=== PATIENT | male | born 1980 | race American Indian/Alaskan Native ===

== ENCOUNTER 2016-04-01 22:51 | Emergency (ER) | payer OTHER ==
[2016-04-01 23:45] VITALS: BP 137/72
[2016-04-02] MEDS ORDERED: TORADOL IM ONE (03:40)
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
[2016-04-02] MEDS ORDERED: MOTRIN PO ONE (04:27)
== END 2016-04-02 03:50 | disposition home or self-care (01) ==
LOC: ED 22:51
DX: M54.5 Low back pain (principal); M54.2 Cervicalgia; R51 Headache; V89.2XXA Person injured in unspecified motor-vehicle accident, traffic, initial encounter; Y93.9 Activity, unspecified; Y99.9 Unspecified external cause status; Y92.410 Unspecified street and highway as the place of occurrence of the external cause
CPT/HCPCS: 99282

== ENCOUNTER 2017-11-24 10:48 | Emergency (ER) | payer OTHER ==
[2017-11-24 11:11] VITALS: BP 148/85
[2017-11-24] MEDS ORDERED: MOTRIN PO ONE (12:30)
--- NOTE | 2017-11-24 12:56 | XRay Report ---
LEFT TIBIA/FIBULA: History: Injury. AP and lateral views of the left tibia/fibula demonstrate normal mineralization and contours for this patient's age. No destructive changes are noted and the adjacent soft tissues are normal. IMPRESSION: Normal left tibia/fibula.
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
== END 2017-11-24 13:25 | disposition home or self-care (01) ==
LOC: ED 10:48
DX: M79.605 Pain in left leg (principal); M79.1 Myalgia; V49.49XA Driver injured in collision with other motor vehicles in traffic accident, initial encounter; Y93.89 Activity, other specified; Y92.89 Other specified places as the place of occurrence of the external cause; Y99.8 Other external cause status